=== PATIENT | female | born 2000 | race Caucasian/White ===

== ENCOUNTER 2019-12-21 17:20 | Outpatient (CLI) | payer BC, SELFPAY ==
--- NOTE | ~2019-12-21 | XR_ITS ---
LUMBAR SPINE INDICATION: Loss of height. TECHNIQUE: 3 views lumbar spine COMPARISON: None FINDINGS: No fracture, subluxation or dislocation. No evidence for spondylolysis or spondylolisthesi s. Vertebral bodies and disk spaces are preserved. IMPRESSION: 1: No significant abnormality of the lumbar spine identified. Reviewed, dictated and finalized at location A.
--- NOTE | ~2019-12-21 | XR_ITS ---
XR thoracic spine 3V 12/21/2019 18:23 Indication: Loss of height. Procedure: 3 views of the thoracic spine Comparison: No prior studies for comparison. Findings: No fracture or traumatic malalignment. Vertebral body and disc heights are preserved. Shelby l thoracic kyphosis. Pedicles intact. No paraspinal soft tissue abnormality. Surrounding osseous stru ctures within normal limits. Impression: 1: No significant abnormality of the thoracic spine. Reviewed, dictated and finalized at location A. Impression: 1: No significant abnormality of the thoracic spine.
--- NOTE | ~2019-12-21 | XR_ITS ---
XR_[id number]_CR 12/21/2019 18:23 Indication: Loss of height. Lifting heavy objects. Procedure: 3 views of the cervical spine Comparison: No prior studies for comparison. Findings: There is reversal of cervical lordosis, likely due to muscle spasm or patient positioning. No acute fracture or traumatic malalignment. Vertebral body heights are maintained. No prevertebral s oft tissue abnormality. Lung apices are normal. Odontoid process within normal limits. Lateral masses normally aligned. Impression: 1: No acute abnormality of the cervical spine. Reviewed, dictated and finalized at location A. Impression: 1: No acute abnormality of the cervical spine.
== END 2019-12-21 17:21 | disposition home or self-care (01) ==
PROVIDERS: PCP Family Medicine; Visit Provider Family Medicine
DX: R29.890 Loss of height (principal)
CPT/HCPCS: 72040; 72072; 72100